=== PATIENT | female | born 1995 | race Caucasian/White ===

== ENCOUNTER 2017-03-02 18:31 | Outpatient (CLI) | payer SELFPAY | END 2017-03-02 18:32 | disposition EMS.NT | LOC: EMS 18:31 | PROVIDERS: ATTEND Surgery | DX: S00.81XA Abrasion of other part of head, initial encounter (principal); V03.10XA Pedestrian on foot injured in collision with car, pick-up truck or van in traffic accident, initial encounter; Y93.01 Activity, walking, marching and hiking; Y92.413 State road as the place of occurrence of the external cause ==

== ENCOUNTER 2019-10-16 03:19 | Emergency (ER) | payer SELFPAY ==
--- NOTE | 2019-10-16 03:23 | ED Physician Documentation ---
PD HPI CHEST PAIN - Stated complaint Stated Complaint: CP - History obtained from History obtained from: Patient - History of Present Illness Timing - onset: How many hours ago (1.5) Timing - details: Abrupt onset Pain level now: 4 Quality: Pain Location: Substernal, Left chest Radiation: Left upper extremity Improved by: Other (no ameliorating factors) Worsened by: Other (no exacerbating factors) Associated symptoms: No: Shortness of air, Diaphoresis, Nausea, Vomiting, Palpitations Similar symptoms before: Has not had sx before Recently seen: Not recently seen - Additional information Additional information: c/o chest pain, midline radiating to left chest and left shoulder, 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 Denies h/o similar symptoms. No exacerbating nor ameliorating factors Review of Systems Cardiac: reports: Chest pain / pressure. denies: Palpitations, Pedal edema, Calf pain Respiratory: reports: Reviewed and negative GI: reports: Reviewed and negative : denies: Now EGA Skin: denies: Rash Musculoskeletal: reports: Reviewed and negative PD PAST MEDICAL HISTORY - Past Medical History Cardiovascular: None Respiratory: None Endocrine/Autoimmune: None GI: None SHIPPING PROCESSOR: None : None HEENT: None Psych: None, Anxiety Musculoskeletal: None Derm: None - Past Surgical History Past Surgical History: Yes - Present Medications Home Medications: Ambulatory Orders Medication Instructions Recorded Confirmed Levonorgestrel 20 Mcg/24H [Mirena] 10/16/19 - Allergies Allergies/Adverse Reactions: Allergies Allergy/AdvReac Type Severity Reaction Status Date / Time rizatriptan benzoate * AdvReac Intermediate tingling Verified 03/28/15 21:11 [From Maxalt] sumatriptan succinate * AdvReac Intermediate tingling Verified 03/28/15 21:11 [From Imitrex] acetaminophen [From Vicodin] AdvReac Nausea Verified 03/28/15 21:11 hydrocodone bitartrate * AdvReac Nausea Verified 03/28/15 21:11 [From Vicodin] topiramate [From Topamax] AdvReac Headache Verified 03/28/15 21:11 kefllex Allergy Intermediate vomitting Uncoded 03/28/15 21:11 - Social History Does the pt smoke?: No Smoking Status: Never smoker Does the pt drink ETOH?: No Does the pt have substance abuse?: No - Immunizations Immunizations are current?: No Immunizations: Other immun not current - POLST Patient has POLST: No PD ED PE NORMAL - Vitals Vital signs reviewed: Yes - General General: Alert and oriented X 3, No acute distress, Well developed/nourished - Cardiac Cardiac: RRR, No murmur, No gallop, No rub - Respiratory Respiratory: No respiratory distress, Clear bilaterally - Abdomen Abdomen: Soft, Non tender - Extremities Extremities: No edema Results - Vitals Vitals: Vital Signs - 24 hr 10/16/19 10/16/19 03:22 04:50 Temperature 98.4 C H Heart Rate 62 55 L Respiratory 16 16 Rate Blood Pressure 124/66 117/74 O2 Saturation 97 99 Oxygen O2 Source Room air - EKG (time done) No standard instances Rate: Rate (enter#) (67) Rhythm: NSR Martin: Normal Intervals: Normal CO QRS: Normal Ischemia: Normal ST segments - Labs Labs: Laboratory Tests 10/16/19 10/16/19 03:42 03:50 WBC 6.9 RBC 4.41 Hgb 13.5 Hct 39.6 MCV 89.8 MCH 30.6 MCHC 34.1 RDW 11.9 L Plt Count 281 MPV 9.6 Neut # (Auto) 3.6 Lymph # (Auto) 2.2 [place] # (Auto) 0.7 Eos # (Auto) 0.4 Baso # (Auto) 0.1 Absolute Nucleated RBC 0.00 Nucleated RBC % 0.0 Sodium 138 Potassium 4.0 Chloride 105 Carbon Dioxide 25 Anion Gap 8.0 BUN 12 Creatinine 0.7 Estimated GFR (MDRD) 103 Glucose 115 H Calcium 9.2 Total Bilirubin 0.6 AST 14 ALT 10 Alkaline Phosphatase 58 Total Protein 7.0 Albumin 4.3 Globulin 2.7 Albumin/Globulin Ratio 1.6 Lipase 31 - Rads (name of study) chest xray Radiology: Prelim report reviewed, See rad report PD MEDICAL DECISION MAKING - ED course Complexity details: reviewed results, re-evaluated patient, considered differential, d/w patient Departure - Departure Disposition: Home, Self Care Clinical Impression: Chest pain Condition: Good Instructions: ED Chest Pain Atypical Unkn Cause Discharge Date/Time: 10/16/19 04:50
[2019-10-16 03:47] LABS: BASOPHILS # (AUTO) 0.1 10^3/uL (0.0-0.1); BASOPHILS % (AUTO) 0.9 %; EOSINOPHILS # (AUTO) 0.4 10^3/uL (0.0-0.7); EOSINOPHILS % (AUTO) 5.8 %; HGB - HEMOGLOBIN 13.5 g/dL (12.0-16.0); LYMPHOCYTES # (AUTO) 2.2 10^3/uL (1.5-3.5); LYMPHOCYTES % (AUTO) 31.6 %; MEAN CORPUSCULAR HEMOGLOBIN 30.6 pg (27.0-31.0); MEAN CORPUSCULAR HGB CONC 34.1 g/dL (32.0-36.0); MEAN CORPUSCULAR VOLUME 89.8 fL (81.0-99.0); MEAN PLATELET VOLUME 9.6 fL (7.9-10.8); MONOCYTES # (AUTO) 0.7 10^3/uL (0.0-1.0); MONOCYTES % (AUTO) 9.7 %; NEUTROPHILS # (AUTO) 3.6 10^3/uL (1.5-6.6); NEUTROPHILS % (AUTO) 51.7 %; PLT - PLATELET COUNT 281 10^3/uL (130-450); RED BLOOD COUNT 4.41 10^6/uL (4.20-5.40); RED CELL DISTRIBUTION WIDTH 11.9 % (12.0-15.0); WHITE BLOOD COUNT 6.9 x10^3/uL (4.8-10.8)
[2019-10-16 04:13] LABS: ALBUMIN 4.3 g/dL (3.2-5.5); ALBUMIN/GLOBULIN RATIO 1.6 (1.0-2.2); BILIRUBIN,TOTAL 0.6 mg/dL (0.2-1.0); CALCIUM 9.2 mg/dL (8.5-10.3); CREATININE 0.7 mg/dL (0.4-1.0)
[2019-10-16 04:51] VITALS: BP 117/74
--- NOTE | 2019-10-16 08:18 | XRAY Report ---
PROCEDURE: Chest 2 View X-Ray INDICATIONS: Chest pain TECHNIQUE: 2 view(s) of the chest. COMPARISON: 06/07/2014 FINDINGS: Surgical changes and devices: None. Lungs and pleura: No pleural effusions or pneumothorax. Lungs are clear. Mediastinum: Mediastinal contours are normal. Heart size is normal. Bones and chest wall: No suspicious bony abnormalities. Soft tissues appear unremarkable. IMPRESSION: No acute cardiopulmonary process demonstrated radiographically. Reviewed by: Sergey Cortez MD on 10/16/2019 8:17 AM PDT Approved by: Sergey Cortez MD on 10/16/2019 8:17 AM PDT Station ID: [id number]
== END 2019-10-16 04:50 | disposition home or self-care (01) ==
LOC: ED 03:19
DX: R07.89 Other chest pain (principal)
CPT/HCPCS: 36415; 71046; 80053; 83690; 85025; 93005; 99283; 99284

== ENCOUNTER 2020-03-17 00:58 | Emergency (ER) | payer OTHER ==
[2020-03-17 01:09] VITALS: BP 133/71
[2020-03-17] MEDS ORDERED: IBUPROFEN 600 MG TABLET PO STA (01:24)
--- NOTE | 2020-03-17 01:27 | ED Physician Documentation ---
History of Present Illness - Stated complaint Stated Complaint: LT LEG PX/NUMBNESS - Chief complaint Chief Complaint: Ext Problem - History obtained from History obtained from: Patient - Additonal information Additional information: 24-year-old woman with past medical history of anxiety and migraines presents with paresthesia down left leg happening suddenly for the first time this past evening. Patient endorses tingling numbness shooting down into her left thigh/foot and upward to external leg a/w mild aching constant pain that has tapered off. she also has pain/numbness in L posterior shoulder and upper back. denies other fnd. denies weakness, urinary/fecal incontinence retention. denies leg swelling, injury, redness. no history of clots, hormone use, recent surgery/bedrest. Review of Systems Constitutional: denies: Fever, Chills Skin: denies: Abrasion (s) Musculoskeletal: reports: Back pain, Extremity pain Neurologic: reports: Numbness. denies: Generalized weakness, Focal weakness PD PAST MEDICAL HISTORY - Past Medical History Cardiovascular: None Respiratory: None Endocrine/Autoimmune: None GI: None FLOOR SPECIALIST: None : None HEENT: None Psych: None, Anxiety Musculoskeletal: None Derm: None - Past Surgical History Past Surgical History: Yes - Present Medications Home Medications: Ambulatory Orders Medication Instructions Recorded Confirmed Levonorgestrel 20 Mcg/24H [Mirena] 10/16/19 - Allergies Allergies/Adverse Reactions: Allergies Allergy/AdvReac Type Severity Reaction Status Date / Time rizatriptan benzoate * AdvReac Intermediate tingling Verified 03/17/20 01:09 [From Maxalt] sumatriptan succinate * AdvReac Intermediate tingling Verified 03/17/20 01:09 [From Imitrex] acetaminophen [From Vicodin] AdvReac Nausea Verified 03/17/20 01:09 hydrocodone bitartrate * AdvReac Nausea Verified 03/17/20 01:09 [From Vicodin] topiramate [From Topamax] AdvReac Headache Verified 03/17/20 01:09 kefllex Allergy Intermediate vomitting Uncoded 03/17/20 01:09 - Social History Does the pt smoke?: No Smoking Status: Never smoker Does the pt drink ETOH?: No Does the pt have substance abuse?: No - Immunizations Immunizations are current?: No Immunizations: Other immun not current - POLST Patient has POLST: No PD ED PE NORMAL - Vitals Vital signs reviewed: Yes - General General: Alert and oriented X 3 - HEENT HEENT: Atraumatic, PERRL, EOMI - Neck Neck: Supple, no meningeal sign - Cardiac Cardiac: RRR - Respiratory Respiratory: No respiratory distress, Clear bilaterally - Abdomen Abdomen: Non tender, Non distended - Female Female : Deferred - Rectal Rectal: Deferred - Back Back: No spinal TTP - Derm Derm: Normal color, Warm and dry - Extremities Extremities: No deformity, No tenderness to palpate, Normal ROM s pain, No edema, No calf tenderness / cord, Other (sensory intact BL upper and LE. 2+ pulses all extremities. normal strength all extremities. ) - Neuro Neuro: Alert and oriented X 3, social work specialist 2-12 intact, No motor deficit, No sensory deficit, Normal speech, Other (normal gait and cerebellar testing) - Psych Psych: Normal mood, Normal affect Results - Vitals Vitals: Vital Signs - 24 hr 03/17/20 01:00 Temperature 37.2 C Heart Rate 80 Respiratory 16 Rate Blood Pressure 133/71 H O2 Saturation 99 Oxygen O2 Source Room air PD MEDICAL DECISION MAKING - ED course Complexity details: reviewed results, d/w patient ED course: 24-year-old woman presents with paresthesias and back pain this evening. No red flags at this time. Patient has a normal neurologic exam. Education given about reasons for return. Patient will follow up with her primary doctor. Departure - Departure Disposition: Home, Self Care Clinical Impression: Pain in extremity, Back pain Condition: Good Instructions: Back Pain Relieve Comments: You were seen in the emergency department for numbness, tingling, leg and back pain. It is unlikely that you have a blood clot. It is also unlikely that there is a neurologic cause for this. Follow-up with your primary doctor about the symptoms. Return to the ED if you have any new or worsening symptoms or for other concerns.
== END 2020-03-17 01:32 | disposition home or self-care (01) ==
LOC: ED 00:58
DX: R20.2 Paresthesia of skin (principal); M25.512 Pain in left shoulder; M54.9 Dorsalgia, unspecified
CPT/HCPCS: 99282; 99284; A9270